=== PATIENT | male | born 1960 | race Caucasian/White ===

== ENCOUNTER 2018-02-28 10:53 | Day surgery (SDC) | payer MEDICARE, OTHER ==
[~2018-02-28 10:53] MED LIST: Lactated Ringers 1,000 ML IV SCH; Midazolam 1 MG/ML 2 ML SDV ONE; Propofol 200 MG/20 ML SDV ONE; fentaNYL 100 MCG/2 ML SDV ONE
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
[2018-02-28] MEDS ORDERED: EPINEPHrine 1 MG/ML SDV ONE (13:51)
[2018-02-28] MEDS ORDERED: ePHEDrine 50 MG/ML SDV ONE (13:51)
--- NOTE | 2018-02-28 13:59 | PCM.OPNOTE ---
- General Post-Op/Procedure Note Date of Surgery/Procedure: 02/28/18 Operative Procedure(s): Colonoscopy with cold, sigmoid and rectal polypectomies Pre Op Diagnosis: Desire for colorectal cancer screening. Family history of colon polyps. Post-Op Diagnosis: Sigmoid and rectal polyps. Anesthesia Technique: MAC (ASA III) Primary Surgeon: Keyon Charles Health Sciences Manager: Jorge Luis Reyes Condition: Good Free Text/Narrative:: Dictation [id number] CPT CODE [id number]
--- NOTE | 2018-02-28 14:01 | PCM.POSTAN ---
POST ANESTHESIA ASSESSMENT - MENTAL STATUS Mental Status: Alert, Oriented - VITAL SIGNS Pulse Rate: 64 SaO2: 99 Resp Rate: 12 - RESPIRATORY Respiratory Status: Respiratory Rate WNL, Airway Patent, O2 Saturation Stable - CARDIOVASCULAR CV Status: Pulse Rate WNL, Blood Pressure Stable - GASTROINTESTINAL GI Status: No Symptoms - PAIN Pain Score: 0 - POST OP HYDRATION Hydration Status: Adequate & Stable
--- NOTE | 2018-02-28 14:38 | OR ---
SURGEON: Keyon Charles M.D. DATE OF PROCEDURE: 02/28/2018 OPERATION PERFORMED: Colonoscopy with cold sigmoid and cold rectal polypectomy. MAPPING SUPERVISOR: Dr. Reyes, PGY2 ANESTHESIA: MAC. ASA CLASSIFICATION: III. PREOPERATIVE DIAGNOSES: 1. Desire for colorectal cancer screening. 2. Family history of colon polyps. POSTOPERATIVE DIAGNOSIS: Sigmoid and rectal polyps. DESCRIPTION OF PROCEDURE: The patient was taken to the endoscopy room and positioned on the endoscopy table in the left lateral decubitus position. Time-out was called for appropriate identification of the patient and procedure. Monitored anesthesia care was provided. The colonoscope was inserted into the rectum and advanced with minimal difficulty to the cecum where the colonoscope was retroflexed to visualize the ascending colon from below. The colonoscope was then straightened and slowly withdrawn. Cecum, ascending colon, hepatic flexure, transverse colon, splenic flexure, and descending colon showed no tumors, polyps, diverticula, or angiodysplastic changes. The sigmoid colon was carefully visualized and two small polyps were encountered and removed with the cold biopsy forceps. They were sent as one specimen as they were in the same area. No diverticular changes were noted. Once the colonoscope was withdrawn to the rectum, two small polyps were also encountered and again removed with the cold biopsy forceps and sent for separate histologic analysis. The colonoscope was retroflexed to visualize the anal orifice from above. No tumors, polyps, or acute hemorrhoidal changes were noted. The colonoscope was then straightened, the rectum aspirated, and the colonoscope removed. The patient tolerated the procedure well. He was taken to recovery room in satisfactory condition. DELVIS / MELISSA /[id number]
== END 2018-02-28 14:31 | disposition home or self-care (01) ==
LOC: MW.SDS 10:53
PROVIDERS: ATTEND Surgery
DX: Z12.11 Encounter for screening for malignant neoplasm of colon (principal); K63.5 Polyp of colon; K62.1 Rectal polyp; Z87.891 Personal history of nicotine dependence; Z83.71 Family history of colonic polyps
CPT/HCPCS: 00811; 88305; J0171; J2250; J2704; J3010; J7120